=== PATIENT | female | born 1990 | race Caucasian/White ===

== ENCOUNTER 2017-07-28 15:37 | Outpatient (CLI) | END 2017-07-28 15:38 | disposition home or self-care (01) | LOC: LAB 15:37 | PROVIDERS: ATTEND Nurse Practitioner Family | DX: Z00.00 Encounter for general adult medical examination without abnormal findings (principal) | CPT/HCPCS: 36415; 80053; 80061; 84443; 85025 ==

== ENCOUNTER → 2017-07-30 | Outpatient (CLI) | LOC: LAB 16:42 | PROVIDERS: ATTEND Nurse Practitioner Family | DX: R31.9 Hematuria, unspecified (principal) ==

== ENCOUNTER 2017-08-10 13:00 | Outpatient (CLI) ==
--- NOTE | 2017-08-10 14:23 | MRI ---
EXAM: MRI brain without IV contrast. DATE: 08/10/2017. HISTORY: Headaches. TECHNIQUE: Sagittal T1W, axial T2W, axial FLAIR, axial T1W, axial DWI, and coronal T2W GRE sequences of the brain were obtained using 1.2 Lesley magnet. No IV contrast. COMPARISON: MRI brain 06/02/2016. FINDINGS: The ventricles, cisterns, and subarachnoid spaces are normal in size and configuration. N o midline shift, mass effect or abnormal extra-axial fluid collection is apparent. No acute infarct, hemorrhage or neoplasm is identified. The stevenson - white matter differentiation is normal. The 7th/8 th cranial nerve complexes, cerebellopontine angles, brainstem, and visible cervical spinal cord are normal. There is no cerebellar tonsillar ectopia. The pituitary gland anterior lobe remains promine nt with convex superior border similar to January 2016. Corpus callosum is normal in size and configura tion. Flow voids are present in the major intracranial arteries and in the dural venous sinuses. No aneurysm, AVM or dural venous sinus thrombosis is apparent. No orbit abnormality is identified. Th e mastoid air cells are unremarkable. Right maxillary sinus floor T2W bright, T1W dark, 16 x 12.5 x 11 mm focus is demonstrated. A separate T2W intermediate / bright, IR bright, T1W slightly bright fo cus (9 x 11.6 x 7.7 mm) is also evident at the right maxillary sinus floor. There is no acute sinusi tis. Minor/mild adenoid tissue prominence is revealed. No neck mass or lymphadenopathy is detected. No calvarial neoplasm or acute fracture is evident. IMPRESSIONS: 1. No acute infarct, hemorrhage, intra-axial neoplasm or hydrocephalus. 2. Anterior pituitary gland prominence/lesion is similar to the January 2016, which favors a benign pro cess. 3. Mild adenoid hypertrophy (likely benign). 4. Right maxillary sinus probable retention cysts (x2).
== END 2017-08-10 13:01 | disposition home or self-care (01) ==
LOC: RAD 13:00
PROVIDERS: ATTEND Nurse Practitioner Family
DX: R31.9 Hematuria, unspecified (principal); R51 Headache
CPT/HCPCS: 81001

== ENCOUNTER 2018-10-03 20:08 | Emergency (ER) ==
[2018-10-03 20:33] VITALS: BP 111/67; TEMP 98.5; BMI 20.8
[2018-10-03] MEDS ORDERED: SODIUM CHLORIDE 1,000 ML IV STA (20:45)
[2018-10-03] MEDS ORDERED: ZOFRAN 4 MG/2 ML IVP STA (20:45)
[2018-10-03] MEDS ORDERED: DILAUDID 1 MG/ML SYRINGE IVP STA (20:45)
--- NOTE | 2018-10-03 21:47 | CT ---
EXAM: CT scan of the head without contrast HISTORY: Headache TECHNIQUE: Helical imaging of the head was performed without contrast. 5 mm thin axial images and c oronal and sagittal images were provided for interpretation. Comparison MRI of the brain dated 08/10/2017. FINDINGS: The stevenson-white interface appears normal. No acute hemorrhages are seen. There is no mass effect. The basal cisterns are patent. The paranasal sinuses and mastoid air cells are clear. The calvarium and extracranial soft tissues are normal. IMPRESSION: No acute intracranial abnormalities are seen.
--- NOTE | 2018-10-03 21:56 | CT ---
EXAM: CT scan abdomen pelvis with contrast " HISTORY: Abdominal pain COMPARISON: CT scan abdomen pelvis 09/16/2016 FINDINGS: Contiguous axial images obtained from lung bases to the symphysis pubis following uneventf ul administration of intravenous contrast utilizing 3-mm collimation. Sagittal and coronal reconstru ctions were imaged and reviewed.. The visualized lung bases are clear. The gallbladder is fluid duyen led without cholelithiasis. The liver, pancreas, spleen and adrenal glands have normal enhanced CT a ppearance. The abdominal aorta is normal in course and caliber. The kidneys excrete contrast in a n ormal fashion bilaterally. There is an intrauterine device within the uterus. Prominent parametrial vessels are noted.. The appendix was not visualized. Fluid or inflammatory changes. There are prom inent air and fluid filled loops of small bowel which may be related to ileus versus gastroenteritis. . There is a limbus vertebrae at L2 . IMPRESSION: Prominent small bowel which may related to ileus versus gastroenteritis. Intrauterine device within the uterus. Nonvisualization of the appendix. Prominent parametrial vessels which may be related to pelvic congestion syndrome.
--- NOTE | 2018-10-03 22:03 | ED.PDOC ---
General ED Provider: Dr. JARVIS KASPER-ER Chief Complaint: Abdominal Pain Stated Complaint: fox been hurting for a long time Time Seen by Physician: 20:10 Mode of Arrival: Walk-In Information Source: Patient Exam Limitations: No limitations Primary Care Provider: CHUCK LIAO Nursing and Triage Documentation Reviewed and Agree: Yes Does patient meet sepsis criteria?: No System Inflammatory Response Syndrome: Not Applicable Sepsis Protocol: For patient's 13 years and over: Temp is 96.8 and below OR 101 and greater Pulse >90 BPM Resp >20/minute Acutely Altered Mental Status Are patient's symptoms suggestive of a new infection, such as: -Pneumonia -Skin, Soft Tissue -Endocarditis -UTI -Bone, Joint Infection -Implantable Device -Acute Abdominal Infection -Wound Infection -Meningitis -Blood Stream Catheter Infection -Unknown GI Complaint Exam - Abdominal Pain Complaint/Exam Onset: Gradual Duration: several weeks Symptoms Are: Still present Initial Severity: Mild Current Severity: Mild Location of Pain: Diffuse Character: Reports: Dull, Aching, Cramping Aggravating: Reports: Eating Alleviating: Reports: None Associated Signs and Symptoms: Reports: Nausea Abdominal Findings: Present: None Differential Diagnoses: Constipation Review of Systems - Review Of Systems Constitutional: Reports: No symptoms Eyes: Reports: No symptoms Ears, Nose, Mouth, Throat: Reports: No symptoms Respiratory: Reports: No symptoms Cardiac: Reports: No symptoms GI: Reports: Abdominal pain : Reports: No symptoms Musculoskeletal: Reports: No symptoms Skin: Reports: No symptoms Neurological: Reports: No symptoms Endocrine: Reports: No symptoms Hematologic/Lymphatic: Reports: No symptoms All Other Systems: Reviewed and Negative Past Medical History - Past Medical History Previously Healthy: Yes Endocrine: Reports: Unknown Cardiovascular: Reports: Unknown Respiratory: Reports: Unknown Hematological: Reports: Unknown Gastrointestinal: Reports: Unknown Genitourinary: Reports: Unknown Neuro/Psych: Reports: Unknown Musculoskeletal: Reports: Unknown Cancer: Reports: Unknown Last Menstrual Period: IRREGULAR PERIODS, HAS IUD - Surgical History General Surgical History: Reports: Unknown - Family History Family History: Reports: Unknown - Social History Smoking Status: Never smoker Hx Substance Use: No Alcohol Screening: None - Immunizations Tetanus Shot up to Date: Yes Physical Exam - Physical Exam Appearance: Well-appearing, No pain distress, Well-nourished Eyes: MIGUEL, EOMI, Conjunctiva clear ENT: Ears normal, Nose normal, Oropharynx normal Neck: Supple Respiratory: Airway patent, Breath sounds clear, Breath sounds equal, Respirations nonlabored Cardiovascular: RRR, Pulses normal, No rub, No murmur GI/: Soft, Nontender, No masses, Bowel sounds normal, No Organomegaly Musculoskeletal: Normal strength, ROM intact, No edema, No calf tenderness Skin: Warm, Dry, Normal color Neurological: Sensation intact, Motor intact, Reflexes intact, Cranial nerves intact, Alert, Oriented Psychiatric: Affect appropriate, Mood appropriate Interpretation - Radiology Interpretation Radiology Interpretation By: Radiologist Radiology Results: Negative Exam Interpreted: CT Scan Critical Care Note - Critical Care Note Total Time (mins): 0 Course - Course Hematology/Chemistry: 10/03/18 20:45 10/03/18 20:45 Orders, Labs, Meds: Lab Review 10/03/18 10/03/18 10/03/18 20:45 20:45 20:45 WBC 5.93 RBC 4.29 Hgb 13.2 Hct 40.2 MCV 93.7 MCH 30.8 MCHC 32.8 RDW Coeff of Ekaterina 12.4 Plt Count 179 Immature Gran % (Auto) 0.2 Neut % (Auto) 79.0 Lymph % (Auto) 10.1 [place] % (Auto) 7.6 Eos % (Auto) 2.9 Baso % (Auto) 0.2 Immature Gran # (Auto) 0.0 Neut # (Auto) 4.7 Lymph # (Auto) 0.6 [place] # (Auto) 0.5 Eos # (Auto) 0.2 Baso # (Auto) 0.0 ESR 12 Sodium 139.1 Potassium 3.61 Chloride 103.9 Carbon Dioxide 26.8 Anion Gap 12.01 BUN 10.8 Creatinine 0.72 Estimated GFR (MDRD) 96.00 BUN/Creatinine Ratio 15.00 Glucose 84.6 Calcium 8.58 Total Bilirubin 0.61 AST 43.9 H ALT 31.9 Alkaline Phosphatase 33.8 L Total Protein 7.32 Albumin 4.37 Globulin 2.95 Albumin/Globulin Ratio 1.48 Amylase 77.9 Lipase 98.0 Serum , Qual Negative Urine Color Urine Clarity Urine pH Ur Specific [place] Urine Protein Urine Glucose (UA) Urine Ketones Urine Blood Urine Nitrite Urine Bilirubin Urine Urobilinogen Ur Leukocyte Esterase 10/03/18 20:53 WBC RBC Hgb Hct MCV MCH MCHC RDW Coeff of Ekaterina Plt Count Immature Gran % (Auto) Neut % (Auto) Lymph % (Auto) [place] % (Auto) Eos % (Auto) Baso % (Auto) Immature Gran # (Auto) Neut # (Auto) Lymph # (Auto) [place] # (Auto) Eos # (Auto) Baso # (Auto) ESR Sodium Potassium Chloride Carbon Dioxide Anion Gap BUN Creatinine Estimated GFR (MDRD) BUN/Creatinine Ratio Glucose Calcium Total Bilirubin AST ALT Alkaline Phosphatase Total Protein Albumin Globulin Albumin/Globulin Ratio Amylase Lipase Serum , Qual Urine Color Yellow Urine Clarity Clear Urine pH 5.5 Ur Specific [place] 1.020 Urine Protein Negative Urine Glucose (UA) Negative Urine Ketones Trace Urine Blood Negative Urine Nitrite Negative Urine Bilirubin Negative Urine Urobilinogen 0.2 Ur Leukocyte Esterase Negative Orders Category Date Time Status NPO REMINDER: IMAGING ONCE CARE 10/03/18 20:46 Completed ED IV/MEDIPORT/POWERPORT .ONCE EMERGENCY 10/03/18 20:45 Active AMYLASE Stat LAB 10/03/18 20:45 Completed BLOOD CULTURE (ED ONLY) Stat LAB 10/03/18 20:45 Received CBC W/ AUTO DIFF Stat LAB 10/03/18 20:45 Completed COMPREHENSIVE METABOLIC PANEL Stat LAB 10/03/18 20:45 Completed ESR Stat LAB 10/03/18 20:45 Completed LIPASE Stat LAB 10/03/18 20:45 Completed SERUM Stat LAB 10/03/18 20:45 Completed URINALYSIS C & S IF INDICATED Stat LAB 10/03/18 20:53 Completed 0.9 % Sodium Chloride [Saline Flush] MEDS 10/03/18 20:45 Ordered 1 syr IVF PRN PRN Hydromorphone HCl [Dilaudid 1 mg/ml Syringe] MEDS 10/03/18 20:45 Discontinued 1 mg IVP ONCE STA Ondansetron HCl/Pf [Zofran 4 mg/2 ml] MEDS 10/03/18 20:45 Discontinued 4 mg IVP ONCE STA Sodium Chloride 0.9% [Sodium Chloride] 1,000 ml MEDS 10/03/18 20:[address] ABDOMEN/PELVIS W CONTRAST Stat RADS 10/03/18 20:[address] HEAD W/O CONTRAST Stat RADS 10/03/18 20:46 Completed Medications Generic Name Dose Route Start Last Admin Trade Name Freq PRN Reason Stop Dose Admin Sodium Chloride 1,000 mls @ 500 mls/hr 10/03/18 20:45 10/03/18 21:03 Sodium Chloride IV 10/03/18 22:44 500 mls/hr BOLUS STA Administration Sodium Chloride 1 syr 10/03/18 20:45 Saline Flush IVF PRN PRN To flush IV Discontinued Medications Generic Name Dose Route Start Last Admin Trade Name Aleksey PRN Reason Stop Dose Admin Hydromorphone HCl 1 mg 10/03/18 20:45 10/03/18 21:03 Dilaudid 1 Mg/Ml Syringe IVP 10/03/18 20:46 1 mg ONCE STA Administration Ondansetron HCl 4 mg 10/03/18 20:45 10/03/18 21:03 Zofran 4 Mg/2 Ml IVP 10/03/18 20:46 4 mg ONCE STA Administration Vital Signs: Temp Pulse Resp BP Pulse Ox 10/03/18 20:08 98.5 F 89 18 111/67 97 Departure - Departure Time of Disposition: 22:03 Disposition: HOME SELF-CARE Discharge Problem: Abdominal pain Instructions: Chronic Abdominal Pain (ED) Condition: Good Pt referred to PMD for follow-up: Yes IPMP verified?: No Additional Instructions: bentyl 10md qid prn pain--#30--talk to your pcp about gb studies Allergies/Adverse Reactions: Allergies azithromycin [From Zithromax] Allergy (Verified 10/03/18 20:33) venlafaxine HCl [From Effexor] Allergy (Verified 10/03/18 20:33) Itching Home Medications: Ambulatory Orders Levonorgestrel [Mirena] 1 each IY DIRECTED 05/03/18 Multivitamin 1 cap PO DAILY 10/03/18 Quetiapine Fumarate 50 mg PO DIRECTED 10/03/18 Sumatriptan Succinate [Imitrex] 100 mg PO DIRECTED PRN 10/03/18 Disposition Discussed With: Patient, Family
== END 2018-10-03 22:14 | disposition home or self-care (01) ==
LOC: ED 20:08
DX: R10.9 Unspecified abdominal pain (principal); R11.0 Nausea
CPT/HCPCS: 36415; 80053; 81001; 82150; 83690; 84703; 85025; 85651; 87040; 96360; 96375; 99283

== ENCOUNTER 2018-10-19 08:16 | Outpatient (CLI) ==
--- NOTE | 2018-10-19 12:57 | NM ---
EXAM: Hepatobiliary scan HISTORY: Abdominal pain after eating. Protein and bacteria in urine. COMPARISON: None of this type. PROCEDURE: The patient was injected with 4.8 mCi of 99mTc mebrofenin intravenously. Images of the ab domen were obtained at 5 min intervals for 30 minutes. Additional images were obtained at 45 minute s and 1 hour. The patient was then injected with 2 mcg of CCK by slow infusion while images of the ga llbladder were obtained to assess gallbladder contraction. FINDINGS: Sequential images demonstrate normal uptake of tracer into the liver. Activity is seen in the intrahepatic biliary ducts at about 10 minutes. The activity appears in the gallbladder at about 10 minutes. Subsequent images demonstrate increasing activity in the gallbladder. Activity first a ppears in the small bowel at 30 minutes. The gallbladder ejection fraction is 7% . IMPRESSION: 1.Normal hepatobiliary scan. 2.The gallbladder ejection fraction is 7% (very low).
== END 2018-10-19 08:17 | disposition home or self-care (01) ==
LOC: RAD 08:16
PROVIDERS: ATTEND Nurse Practitioner Family
DX: R10.13 Epigastric pain (principal)

== ENCOUNTER 2018-11-10 15:04 | Outpatient (CLI) | END 2018-11-10 15:05 | disposition home or self-care (01) | LOC: LAB 15:04 | PROVIDERS: ATTEND Nurse Practitioner Family | DX: R53.83 Other fatigue (principal) | CPT/HCPCS: 36415; 80053; 80061; 83036; 84443; 85025 ==

== ENCOUNTER 2019-02-21 12:51 | Observation (INO) ==
--- NOTE | 2019-02-21 13:22 | ED.PDOC ---
General ED Provider: Dr. CHERYL BLUM Chief Complaint: Breast Pain Stated Complaint: Redness, tenderness and warmth to Right Breast; started yesterday. Saw primary care and sent here. Time Seen by Physician: 13:12 Mode of Arrival: Walk-In Information Source: Patient Exam Limitations: No limitations Primary Care Provider: CHUCK LIAO Nursing and Triage Documentation Reviewed and Agree: Yes Does patient meet sepsis criteria?: No System Inflammatory Response Syndrome: Not Applicable Sepsis Protocol: For patient's 13 years and over: Temp is 96.8 and below OR 101 and greater Pulse >90 BPM Resp >20/minute Acutely Altered Mental Status Are patient's symptoms suggestive of a new infection, such as: -Pneumonia -Skin, Soft Tissue -Endocarditis -UTI -Bone, Joint Infection -Implantable Device -Acute Abdominal Infection -Wound Infection -Meningitis -Blood Stream Catheter Infection -Unknown Review of Systems - Review Of Systems Constitutional: Reports: Weakness Eyes: Reports: No symptoms Ears, Nose, Mouth, Throat: Reports: No symptoms Respiratory: Reports: No symptoms Cardiac: Reports: No symptoms All Other Systems: Reviewed and Negative Past Medical History - Past Medical History Previously Healthy: Yes Endocrine: Reports: Unknown Cardiovascular: Reports: Unknown Respiratory: Reports: Unknown Hematological: Reports: Unknown Gastrointestinal: Reports: Unknown Genitourinary: Reports: Unknown Neuro/Psych: Reports: Unknown Musculoskeletal: Reports: Unknown Cancer: Reports: Unknown Last Menstrual Period: 3 weeks ago - Surgical History General Surgical History: Reports: Unknown - Family History Family History: Reports: Unknown - Social History Smoking Status: Never smoker Hx Substance Use: No Alcohol Screening: None - Immunizations Tetanus Shot up to Date: Yes Physical Exam - Physical Exam Appearance: Ill-appearing Ill-appearing: Mild Pain Distress: Mild (Right breast) Respiratory: Airway patent, Breath sounds clear, Breath sounds equal, Respirations nonlabored Cardiovascular: RRR, Pulses normal GI/: Soft, Nontender Musculoskeletal: Normal strength, ROM intact, No edema Skin: Warm, Dry, Normal color (Except R breast marked erythema, warm to touch and very tender; neg axillary nodes) Neurological: Sensation intact, Alert, Oriented Psychiatric: Affect appropriate, Mood appropriate Physician Notification - Case Discussed Physician Notified: Dr Cervantes/Hospitalist Time of Notification: 15:10 (Agrees with OBS IV/Oral ABX) Critical Care Note - Critical Care Note Total Time (mins): 35 Comments: lab review, consideration of exposure/work site hx; prior surgery this month; discussion with patient and with hospitalist Course - Course Hematology/Chemistry: 02/21/19 13:37 02/21/19 13:37 Orders, Labs, Meds: Lab Review 02/21/19 02/21/19 02/21/19 13:37 13:37 13:37 WBC 18.59 H RBC 3.87 L Hgb 11.9 L Hct 35.3 L MCV 91.2 MCH 30.7 MCHC 33.7 RDW Coeff of Ekaterina 12.7 Plt Count 190 Immature Gran % (Auto) 0.4 Neut % (Auto) 90.2 Lymph % (Auto) 5.2 L [place] % (Auto) 3.7 Eos % (Auto) 0.3 Baso % (Auto) 0.2 Immature Gran # (Auto) 0.1 Neut # (Auto) 16.8 H Lymph # (Auto) 1.0 [place] # (Auto) 0.7 Eos # (Auto) 0.1 Baso # (Auto) 0.0 Sodium 136.8 Potassium 3.04 L Chloride 101.8 Carbon Dioxide 26.8 Anion Gap 11.24 BUN 11.7 Creatinine 0.71 Estimated GFR (MDRD) 97.00 BUN/Creatinine Ratio 16.47 Glucose 122.2 H Lactic Acid 0.78 Calcium 8.45 Total Bilirubin 0.73 AST 29.3 ALT 25.1 Alkaline Phosphatase 42.4 Total Protein 6.33 Albumin 3.72 Globulin 2.61 Albumin/Globulin Ratio 1.42 Orders Category Date Time Status ADMIT OBSERVATION [PLACE PATIENT OBSERVATION] .TO ADMISSION 02/21/19 15:20 Active MEDSURG (NON-MONITORED BED) INTAKE & OUTPUT Q8HR CARE 02/21/19 15:17 Active VITAL SIGNS Q4HR CARE 02/21/19 15:17 Active VITAL SIGNS Q8HR CARE 02/21/19 15:17 Active REGULAR DIET DIETARY 02/21/19 Dinner Ordered BLOOD CULTURE (ED ONLY) Stat LAB 02/21/19 14:00 Received CBC W/ AUTO DIFF DAILY@0600 LAB 02/22/19 06:00 Ordered CBC W/ AUTO DIFF DAILY@0600 LAB 02/23/19 06:00 Ordered CBC W/ AUTO DIFF Stat LAB 02/21/19 13:37 Completed COMPREHENSIVE METABOLIC PANEL DAILY@0600 LAB 02/22/19 06:00 Ordered COMPREHENSIVE METABOLIC PANEL DAILY@0600 LAB 02/23/19 06:00 Ordered COMPREHENSIVE METABOLIC PANEL Stat LAB 02/21/19 13:37 Completed LACTIC ACID Stat LAB 02/21/19 13:37 Completed Ceftriaxone/D5w 1 gm Premix [Rocephin 1 gm Premix] 1 gm MEDS 02/21/19 13:24 Discontinued Premix 50 ml D5w 1 bag IV ONCE Ceftriaxone/D5w 1 gm Premix [Rocephin 1 gm Premix] 50 MEDS 02/21/19 13:40 Discontinued ml IV .STK-MED Sodium Chloride 0.9% [Sodium Chloride] 1,000 ml MEDS 02/21/19 13:23 Discontinued IV BOLUS RESUSCITATION STATUS Routine OTHERS 02/21/19 15:17 Ordered Medications Generic Name Dose Route Start Last Admin Trade Name Freq PRN Reason Stop Dose Admin Clindamycin HCl 300 mg 02/21/19 17:00 Cleocin PO 02/24/19 16:59 QID NAYLA CEFTRIAXONE/D5W 1 GM PREMIX 1 50 mls @ 75 mls/hr 02/21/19 21:00 gm/ Dextrose IV 02/24/19 20:59 Q12HR NAYLA Discontinued Medications Generic Name Dose Route Start Last Admin Trade Name Freq PRN Reason Stop Dose Admin CEFTRIAXONE/D5W 1 GM PREMIX 1 50 mls @ 75 mls/hr 02/21/19 13:24 02/21/19 13: 51 gm/ Dextrose IV 02/21/19 14:03 75 mls/hr ONCE STA Administration Sodium Chloride 1,000 mls @ 1,000 mls/hr 02/21/19 13:23 02/21/19 13:50 Sodium Chloride IV 02/21/19 14:22 1,000 mls/hr BOLUS STA Administration Vital Signs: Temp Pulse Resp BP Pulse Ox 02/21/19 14:49 98 F 02/21/19 12:52 98.0 F 69 14 92/57 L 98 Departure - Departure Time of Disposition: 15:30 Disposition: PLACED OBSERVATION Discharge Problem: Cellulitis Condition: Stable Pt referred to PMD for follow-up: Yes (Follow up after discharge from hospital) IPMP verified?: No (n/a) Allergies/Adverse Reactions: Allergies azithromycin [From Zithromax] Allergy (Verified 02/21/19 13:09) venlafaxine HCl [From Effexor] Allergy (Verified 02/21/19 13:09) Itching Home Medications: Ambulatory Orders Levonorgestrel [Mirena] 1 each IY DIRECTED 05/03/18 Multivitamin 1 cap PO DAILY 10/03/18 Quetiapine Fumarate 50 mg PO DIRECTED 10/03/18 Sumatriptan Succinate [Imitrex] 100 mg PO DIRECTED PRN 10/03/18
[2019-02-21] MEDS ORDERED: SODIUM CHLORIDE 1,000 ML IV STA (13:23)
[2019-02-21] MEDS ORDERED: ROCEPHIN 1 GM/50 ML D5W 1 GM in PREMIX 50 ML D5W 1 BAG IV STA (13:24)
[2019-02-21] MEDS ORDERED: ROCEPHIN 1 GM/50 ML D5W 50 ML IV ONE (13:40)
[2019-02-21] MEDS: CLEOCIN PO SCH ×2 (16:14→20:51)
[2019-02-21 16:23] VITALS: BMI 21.4
--- NOTE | 2019-02-21 16:23 | PCM ---
- Chief Complaint Chief Complaint: Skin rash/breast pain - History of Present Illness History of Present Illness: 28 yo CF patient of Jessica AGUAYO presented to ED on 02/21/19 at 13:[address] Abad. She reported rash present 4-5 days with pain and worsening right breast pain. Worsening specifically over the last 48 hours erythema, tenderness right breast. 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 NO known insect bites, no known trauma/injury. LMP 3 weeks ago else no significant past medical history. No reported surgical history. Tetanus up to date. Labs showed wbc 18.59, hgb 11.9 plt 190. CMP 136.8, K+ 3.04 , cl 101.8, 11.7, glucose 122.2. Lactic acid was negative at 0.78. AST 29.3, ALT 25.1, albumin 3.72. Pt temp was 98, pulse 69, RR 14, BP 92/57, pulse ox 98 % on RA. WBC elevated was only finding and negative remainder of SIRS w/u. Nursing notes reviewed swelling, redness and pain to the right breast, nausea, weakness, right breast warm to touch. Meets characteristics of cellulitis with rubor/calor/dolor. NO localized drainable abscess. Patient seen in room 118 with MS Ajay Elmore present. She noted no known injury/cause. Awoke with sx. Has used ice packs, tylenol and motrin. MGM/PGM ages of 60's with breast cancer. NO first degree relative. No mother/sister/children with BrCA. , no tobacco, no ETOH, no drug use. She has 2 kids 8 and 9. She had period 3 weeks ago, normal for her. She did get 1 gram of rocpehin in the ER. Home meds reviewed zoloft/seroquel, intermittent hydroxyzine and sumatriptan. She had her GB removed early 01/2019. She has no other /co at this time. [id number] erythema, essentially entirety of breast. She has scabbed/abraded regions along the 10 o clock and 2 oclock positions that may be a ?bite. I asked about human bite and she noted it was not that. I asked about wasp/bee sting, she noted it was not that. It could have been a fingernail scratch, she noted it may have been from a mosquito bite. Shenoted tetanus updated within last 2-3 years. She is well within the 5 year window. NO acute/open wounds. Scabbed wounds along upper breast. Non breast feeding female. - Review of Systems Constitutional: weakness, fatigue, loss of appetite. No: fever, chills, sweats Eyes: other (glasses). No: blurred vision, double-vision, discharge, itching, pain, redness, photophobia Ears: No: pain, bleeding, drainage, ringing, hearing loss, other Nose: No: bleeding, congestion, discharge, other Throat: No: pain, swelling, voice change, other Mouth: No: bleeding, pain, swelling, other Respiratory: No: cough, shortness of air, wheeze, hemoptysis, pain with breathing, other Cardiovascular: other (Breast Pain right breast.). No: chest pain, left arm pain, diaphoresis, PND, orthopnea, edema, palpitations, syncope Gastrointestinal: nausea Genitourinary: No: dysuria, hematuria, frequency, incontinence, flank pain, vaginal discharge, abnormal bleeding, pelvic pain, other Last Menstrual Cycle: 3 weeks ago Neurological: dizziness, weakness. No: headache, seizure, numbness, speech difficulty, problems with walking, tremor, fainting Musculoskeletal: No: pain, swelling in joints Skin: rash, wounds Immunology: No: hives, itching, frequent infections, difficulty healing, other Hematology: No: easy bruising, easy bleeding, swollen glands, other Endocrine: No: weight changes, cold intolerance, heat intolerance, excessive thirst, excessive hunger, polyuria, other Psychiatric: depression, other (schizophrenia listed.) Habits: No: tobacco use, substance use, alcohol use - Past Medical History Past Medical History: Nephrolithiaiss, depression, anxiety, migraine, bipolar, Schizophrenia. Pituitary brain tumor, - Past Surgical History Past Surgical History: Hernia repair, GB removed 3 weeks ago. - Allergies Allergies/Adverse Reactions: Allergies Allergy/AdvReac Type Severity Reaction Status Date / Time azithromycin [From Zithromax] Allergy Verified 02/21/19 13:09 venlafaxine HCl Allergy Itching Verified 02/21/19 13:09 [From Effexor] - Medications Medications: Medications Generic Name Dose Route Start Last Admin Trade Name Freq PRN Reason Stop Dose Admin Clindamycin HCl 300 mg 02/21/19 17:00 Cleocin PO 02/24/19 16:59 QID NAYLA CEFTRIAXONE/D5W 1 GM PREMIX 1 50 mls @ 75 mls/hr 02/21/19 21:00 gm/ Dextrose IV 02/24/19 20:59 Q12HR NAYLA - Family History Past Family History: MGM/PGM BRCa but in 60's. Family history of cardiac disorders in father and mother. Family history of diabetes. - Body Composition Height: 5 ft 3 in Weight: 121 lb Body Mass Index (BMI): 21.4 - Physical Examination HEENT: Vital Signs - 24 hr 02/21/19 02/21/19 02/21/19 12:52 14:49 15:59 Temperature 98.0 F 98 F 98.9 F Pulse Rate 69 60 Respiratory 14 16 Rate Blood Pressure 92/57 L O2 Sat by Pulse 98 100 Oximetry Constitutional: Appearance-No acute distress, Consistent with stated age. Orientation- Oriented x 3, alertGait-Normal pace, normal arm movement. Build and Nutrition-[normal BMI 21] General- Patient is pleasant and cooperative with the interview and exam. Integumentary: General-rashes, 15cm x 15cm right breast nearly entirety of the right breast. Enlarged compared to left. Full breast exam completed and no obvious nodules. Serpiginous borders, markedly hot to touch, painful to touch. E/o Cellulitis/erysipelase. She has a small shellie/scab/abrasion at the 10 o' clock position that has a possible healing scratch. Another spot around the 2 oclock position just outside of the areola. No fluctuance, no tissue to I+D. Peau d' orange changes appear present in right breast. Palpation- Normal skin moisture/turgor. Skin is warm to touch, appropriate. Capillary refill is normal bilateral Upper and lower extremity. Head/Neck: Head- normocephalic and atraumatic. Neck- without visible/palpable lumps or pulsations. Palpation- No bony tenderness about head/neck along frontal, occipital, temporal, parietal, mastoid, jawline, zygoma, orbit or any other location. NO temporal artery tenderness. No TMJ tenderness. Neck Supple. Thyroid-No thyromegaly, no nodules Eye: Bilaterally PERRLA, EOMI. No discharge. Upper and lower eyelids are normal. Sclera/conjunctiva normal without discharge. Cornea is normal and clear. Lens is normal. Eyeball appears normal. No ciliary flushing, no conjunctival injection. +Glasses. ENMT: Pinna- normal without tenderness or erythema. External auditory canal Left- normal without erythema or discharge, no excessive cerumen. External auditory canal Right-normal without erythema or discharge, no excessive cerumen. TM left- Rosen/pearly, normal light reflex and anatomy TM Right- Rosen/ pearly, normal light reflex and anatomy Hearing Assessment-normal to conversational speech. Nose and sinus- No sinus tenderness along frontal/ maxillary region. External appearance normal and midline. Nares- bilateral quiet airflow, no discharge. Nasal mucosa- No bleeding noted and no ulcerations observed. [place], moist. Turbinates non boggy. Lips- normal color, moist without cracks/lesions Oral Cavity/Palate- hard/soft palate intact without lesions, oral mucosa pink and moist. Tongue normal midline. Oropharynx- no pharyngeal erythema, Uvula midline. No post nasal drip. No exudate. Salivary glands- Non tender to palpation CHEST/LUNG: Inspection- symmetric chest wall no pectus deformity. Normal effort , no distress, no use of accessory muscles. Breasts as above in skin. Palpation - nontender sternum, ribline. No abnormal pulsations. Auscultation- Breath sounds normal throughout all lung staley. Normal tracheal sounds, Normal bronchial sounds overlying sternum, Bronchovessicular sounds normal between scapulae posteriorly, Normal vessicular breath sounds heard throughout periphery. Lungs are clear today. Adventitious sounds- No wheezes, rales, rhonchi. CARDIOVASCULAR: Carotid artery- normal, no bruits or abnormal pulsations. Jugular vein- no pulsations. Palpation/Percussion- Normal PMI, no palpable thrill Auscultation- Regular rate and rhythm. No murmur noted in sitting, supine positions. Extremities- no digital clubbing, cyanosis, edema, increased warmth. ABDOMEN: Inspection- normal and no visible pulsations. Normal contour. Auscultation- Bowel sounds normal, no abdominal bruits. Palpation/Percussion- soft, non-tender, no rebound tenderness, no rigidity (guarding), no jar tenderness, no masses. Liver-no hepatomegaly, Spleen no splenomegaly, Hernias - none. Rectal not examined. Peripheral Vascular: Upper extremity Left- Normal temperature with pink nailbeds and no ulcerations. Upper extremity Right- Normal temperature with pink nailbeds and no ulcerations. Lower extremity- Normal temperature with pink nailbeds and no ulcerations. DP pulses 2+ bilaterally. Pedal hair intact. Normal capillary refill. Edema- No edema. Varicose veins bilateral LE. Musculoskeletal: Generalized-No generalized swelling or edema of extremities, no digital clubbing or cyanosis, neurovascularly intact all four extremities. Upper extremity- Symmetrical posture. No visible deformity. Normal sensation along medial and lateral upper extremity proximally and distally. NO tenderness overlying shoulder, lateral/medial epicondyle. I&C Tech 5/5 and strength 5/5 bilateral UE. Elbow palpated, no tenderness overlying olecranon. Normal supination, pronation to active/passive ROM and to resisted rotation. Bicep insertion/tricep insertion appear normal without obvious pathology. Rotator cuff evaluated and intact. Normal wrist ROM bilaterally. Normal hand movement, intrinsic muscles of hands normal. No tenderness to palpation of hands/wrists/ elbows. Lower extremity- Hip: Not tender to palpation, no pain, no swelling, edema or erythema of surrounding tissue, normal strength and tone. Normal appearing hip ROM bilaterally without pain. Knee: Knee ROM normal. No tenderness overlying trochanters, no tenderness about patella, quad tendon, patellar tendon. No tenderness at tibial tuberosity. Ankle: normal ROM not tender to palpation along medial/lateral malleolus. Foot: Normal movement of toes, no tenderness bilateral feet/toes. Normal foot type. Spine/Ribs- No deformities, masses or tenderness, no known fractures, normal strength, Normal ROM. Normal stability No tenderness along C/T/L spine. Normal appearing ROM about spine. Neurological: General- Moves all 4 extremities symmetrically. Symmetrical face and body posture. Cranial nerves- individually evaluated II-XII and intact. PERRLA, Normal EOMI, visual/special senses appear intact, Face is symmetrical and normal sensation/movement, normal tongue, normal strength/posture of neck musculature. Reflexes- intact with DTR 2+ patellar, Achilles, bicep, brachial, tricep. Ankle clonus normal with 2 beats. Strength- 5/5 bilateral UE and LE. Soft touch- intact bilateral UE and LE. Temperature sensation- intact bilateral UE and LE. Neuropsych: Oriented- Person, place, time. (AAOx3), Mood/affect- Flat. Speech- Normal speech, normal rate, normal tone, normal use of language, volume and coherence. Thought content- normal with ability to perform basic computations and apply abstract thought/reason. Associations- intact, no SI/HI, no hallucinations, delusions, obsessions. Judgment/insight- Appropriate. Memory- Recall intact, remote and recent memory intact. Knowledge- Age appropriate fund of knowledge, concentration and attention span normal. Lymphatic: Head/Neck- normal size and non tender to palpation. Axillary- normal size and non tender to palpation. Femoral and Inguinal- normal size and non tender to palpation. - Lab/Tests/Diagnostic Imaging Lab/Tests/Diagnostic Imaging: Laboratory Last Values WBC 18.59 K/ul (4.6-10.2) H 02/21/19 13:37 RBC 3.87 10^6/ul (4.20-5.40) L 02/21/19 13:37 Hgb 11.9 g/dl (12.0-16.0) L 02/21/19 13:37 Hct 35.3 % (37.0-47.0) L 02/21/19 13:37 MCV 91.2 fl (81.0-99.0) 02/21/19 13:37 MCH 30.7 pg (27.0-31.0) 02/21/19 13:37 MCHC 33.7 (31.8-35.4) 02/21/19 13:37 RDW Coeff of Ekaterina 12.7 % (11.6-14.8) 02/21/19 13:37 Plt Count 190 10^3/uL (140-440) 02/21/19 13:37 Immature Gran % (Auto) 0.4 % (0.0-5.0) 02/21/19 13:37 Neut % (Auto) 90.2 02/21/19 13:37 Lymph % (Auto) 5.2 (10.0-50.0) L 02/21/19 13:37 [place] % (Auto) 3.7 (0-10) 02/21/19 13:37 Eos % (Auto) 0.3 % (0.0-7.0) 02/21/19 13:37 Baso % (Auto) 0.2 % (0.0-3.0) 02/21/19 13:37 Immature Gran # (Auto) 0.1 (0.0-1.0) 02/21/19 13:37 Neut # (Auto) 16.8 K/ul (2.0-6.9) H 02/21/19 13:37 Lymph # (Auto) 1.0 K/uL (0.60-3.4) 02/21/19 13:37 [place] # (Auto) 0.7 K/uL (0.4-2.0) 02/21/19 13:37 Eos # (Auto) 0.1 K/ul (0.0-0.7) 02/21/19 13:37 Baso # (Auto) 0.0 K/uL (0-0.2) 02/21/19 13:37 Sodium 136.8 mmol/L (134.5-145) 02/21/19 13:37 Potassium 3.04 mmol/L (3.5-5.1) L 02/21/19 13:37 Chloride 101.8 mmol/L (98-107) 02/21/19 13:37 Carbon Dioxide 26.8 mmol/L (22-30.0) 02/21/19 13:37 Anion Gap 11.24 02/21/19 13:37 BUN 11.7 mg/dL (7-17) 02/21/19 13:37 Creatinine 0.71 mg/dL (0.60-1.30) 02/21/19 13:37 Estimated GFR (MDRD) 97.00 mL/min 02/21/19 13:37 BUN/Creatinine Ratio 16.47 02/21/19 13:37 Glucose 122.2 mg/dL (74-106) H 02/21/19 13:37 Lactic Acid 0.78 mmol/L (0.7-2.1) 02/21/19 13:37 Calcium 8.45 mg/dL (8.4-10.2) 02/21/19 13:37 Total Bilirubin 0.73 mg/dL (0.2-1.3) 02/21/19 13:37 AST 29.3 U/L (14-36) 02/21/19 13:37 ALT 25.1 U/L (0-35) 02/21/19 13:37 Alkaline Phosphatase 42.4 U/L (38-126) 02/21/19 13:37 Total Protein 6.33 g/dL (6.3-8.2) 02/21/19 13:37 Albumin 3.72 g/dL (3.5-5.0) 02/21/19 13:37 Globulin 2.61 02/21/19 13:37 Albumin/Globulin Ratio 1.42 02/21/19 13:37 - Assessment (1) Cellulitis Status: Acute Code(s): L03.90 - CELLULITIS, UNSPECIFIED SNOMED Code(s): 043917997 (2) Hypokalemia Status: Acute Code(s): E87.6 - HYPOKALEMIA SNOMED Code(s): 20696584 (3) Normocytic anemia Status: Acute Code(s): D64.9 - ANEMIA, UNSPECIFIED SNOMED Code(s): 509511806 (4) Schizophrenia Status: Acute Code(s): F20.9 - SCHIZOPHRENIA, UNSPECIFIED SNOMED Code(s): 50035097 - Plan Plan: Erysipelas/Cellulitis: Patient presented with cellulitis vs insect sting vs human bite with [id number] erythema, edema, warmth. She has no hemorrhage, no bullae, no fever. This is unilateral, may involve the upper dermis and possibly lymphatics. With her AGUSTIN, weakness, fatigue and sudden onset onset, erysipelas is more likely than cellulitis. NO purulent drainage/abscess. There is a clear demarcation between tissues, specifically breast vs chest wall and this added additional strength to dx of erysipelas. She has some dimpling of the right breast suggesting edema of the hair follicles. Peau d'orange appearance is present. She had rapid progression of erythema over 48 hour period, was never tried on oral therapy so she will be put in for observation due to pain response. No fever, no chills, no tachycardia. I will cover for beta hemolytic strep and I also consiered possibility of human bite. I may change abx to augmentin, if no improvement in 24-48 hours. I will likely stop the rocephin and use 7 days of clinda/augmentin to cover for erysipelas and human bite. There is currently nothing to culture. Inflammatory breast cancer was considered and will continue to be on ddx. Since almost all women have LN involvement, this is less likely. - Admit observation - Clindamycin 300 QID PO - Rocephin 1 gram IV Daily. - CBC in am - CMP in am - Consider Mammo and US if not improving in 24-48 hours. - Morphine 2mg q 4 hours for pain. - Resume home psych meds. Leukocytosis: CBC repeat in am tomorrow Hypokalemia: 20meq K+Cl- twice daily. - CMP in am. - MG++ in am. Normocytic anemia: Monitor for now. -CBC in am. Diet: Regular diet DVT Prophy: Lovenox 40mg subcutaneous daily. Disposition: >50minute spent on admission today. Reviewed ER note, 1:[address] Abad. Discussed case with nursing, reviewed labs. No imaging done. Skin pen marking of breast per nursing. Entirety of my history and exam completed with MS 4 Emilee Elmore present. Patient daughter present as well. Will see patient again in am.
[2019-02-21] MEDS ORDERED: MORPHINE 2 MG/ML SYRINGE IVP PRN (16:50)
[2019-02-21] MEDS ORDERED: NON-FORMULARY MEDICATION (Sumatriptan Succinate [Imitrex] 100 MG) PO PRN (16:52)
[2019-02-21] MEDS ORDERED: QUETIAPINE FUMARATE 50 MG PO SCH (17:00)
[2019-02-21] MEDS ORDERED: LEVONORGESTREL IY SCH (17:00)
[2019-02-21] MEDS ORDERED: LOVENOX ONE (17:23)
[2019-02-21] MEDS: K-DUR PO SCH (17:26)
[2019-02-21] MEDS: LOVENOX SUBCUT SCH (17:26)
[2019-02-21] MEDS ORDERED: ZOFRAN TAB PO PRN (19:58)
[2019-02-21] MEDS ORDERED: ROCEPHIN 1 GM/50 ML D5W 1 GM in PREMIX 50 ML D5W 1 BAG IV SCH (21:00)
[2019-02-22] MEDS ORDERED: IMITREX PO PRN (07:02)
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
[2019-02-22] MEDS: CLEOCIN PO SCH ×4 (08:41→20:21)
[2019-02-22] MEDS: K-DUR PO SCH ×2 (08:41→17:07)
[2019-02-22] MEDS: AUGMENTIN 875-125 MG TAB PO SCH ×2 (08:41→20:20)
[2019-02-22] MEDS: ZOLOFT PO SCH (08:41)
[2019-02-22] MEDS ORDERED: SERTRALINE HCL 50 MG PO SCH (09:00)
[2019-02-22] MEDS: LOVENOX SUBCUT SCH (17:08)
[2019-02-22] MEDS ORDERED: SEROQUEL PO SCH (21:00)
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
[2019-02-23] MEDS: CLEOCIN PO SCH (08:41)
[2019-02-23] MEDS: K-DUR PO SCH (08:41)
[2019-02-23] MEDS: AUGMENTIN 875-125 MG TAB PO SCH (08:42)
[2019-02-23] MEDS: ZOLOFT PO SCH (08:42)
[2019-02-23 10:03] VITALS: BP 89/54; TEMP 97.9
--- NOTE | 2019-02-23 11:31 | US ---
EXAM: Diagnostic right breast ultrasound HISTORY: Inflammatory changes of the breast which is red and painful diffusely. COMPARISON: None FINDINGS: Ultrasound of the right breast demonstrates scattered subcutaneous edema with no focal mass or abnormality. There is no focal fluid collection. IMPRESSION: Findings are most consistent with cellulitis with no abscess. Follow-up as clinically i ndicated. If there is no resolution of symptoms, follow-up ultrasound may be obtained. BI-RADS 2: Benign findings:
--- NOTE | 2019-02-23 13:14 | PCM.DC ---
Final Diagnosis: Erysipelas/Cellulitis of Right Breast Leukocytosis Normocytic anemia Hypokalemia (1) Cellulitis Status: Inactive Code(s): L03.90 - CELLULITIS, UNSPECIFIED SNOMED Code(s): 583974194 (2) Hypokalemia Status: Resolved Code(s): E87.6 - HYPOKALEMIA SNOMED Code(s): 63205173 (3) Normocytic anemia Status: Resolved Code(s): D64.9 - ANEMIA, UNSPECIFIED SNOMED Code(s): 363043152 (4) Schizophrenia Status: Chronic Code(s): F20.9 - SCHIZOPHRENIA, UNSPECIFIED SNOMED Code(s): 43507626 Reason for Hospitalization: Erysipelas/cellulitis of right breast: Improving Leukocytosis: Resolved. Hypokalemia: Resolved. Normocytic Anemia: Resolved Schizophrenia: Chronic/stable Prognosis at Discharge: Improving breast pain/erythema. Condition at Discharge: Stable/Improved. Medications at Discharge: Ambulatory Orders Medication Instructions Recorded Levonorgestrel [Mirena] 1 each IY DIRECTED 05/03/18 Multivitamin 1 cap PO DAILY 10/03/18 Quetiapine Fumarate 50 mg PO DIRECTED 10/03/18 Sumatriptan Succinate [Imitrex] 100 mg PO DIRECTED PRN 10/03/18 Amoxicillin/Potassium Clav 1 tab PO Q12HR 6 Days #13 tablet 02/23/19 [Augmentin 875-125 mg Tab] Clindamycin HCl [Cleocin] 300 mg PO QID 6 Days #20 cap 02/23/19 Ondansetron HCl [Zofran Tab] 4 mg PO Q8H PRN 3 Days #12 tablet 02/23/19 Potassium Chloride [K-Dur] 20 meq PO BIDWM 7 Days #14 tab 02/23/19 Lab/Diagnostics: Laboratory Last Values WBC 6.22 K/ul (4.6-10.2) D 02/23/19 04:35 RBC 3.98 10^6/ul (4.20-5.40) L 02/23/19 04:35 Hgb 12.0 g/dl (12.0-16.0) 02/23/19 04:35 Hct 36.9 % (37.0-47.0) L 02/23/19 04:35 MCV 92.7 fl (81.0-99.0) 02/23/19 04:35 MCH 30.2 pg (27.0-31.0) 02/23/19 04:35 MCHC 32.5 (31.8-35.4) 02/23/19 04:35 RDW Coeff of Ekaterina 12.9 % (11.6-14.8) 02/23/19 04:35 Plt Count 213 10^3/uL (140-440) 02/23/19 04:35 Immature Gran % (Auto) 0.2 % (0.0-5.0) 02/23/19 04:35 Neut % (Auto) 57.3 02/23/19 04:35 Lymph % (Auto) 24.4 (10.0-50.0) 02/23/19 04:35 [place] % (Auto) 11.7 (0-10) H 02/23/19 04:35 Eos % (Auto) 6.1 % (0.0-7.0) 02/23/19 04:35 Baso % (Auto) 0.3 % (0.0-3.0) 02/23/19 04:35 Immature Gran # (Auto) 0.0 (0.0-1.0) 02/23/19 04:35 Neut # (Auto) 3.6 K/ul (2.0-6.9) 02/23/19 04:35 Lymph # (Auto) 1.5 K/uL (0.60-3.4) 02/23/19 04:35 [place] # (Auto) 0.7 K/uL (0.4-2.0) 02/23/19 04:35 Eos # (Auto) 0.4 K/ul (0.0-0.7) 02/23/19 04:35 Baso # (Auto) 0.0 K/uL (0-0.2) 02/23/19 04:35 Sodium 141.4 mmol/L (134.5-145) 02/23/19 04:35 Potassium 4.20 mmol/L (3.5-5.1) 02/23/19 04:35 Chloride 107.1 mmol/L (98-107) H 02/23/19 04:35 Carbon Dioxide 27.0 mmol/L (22-30.0) 02/23/19 04:35 Anion Gap 11.50 02/23/19 04:35 BUN 9.9 mg/dL (7-17) 02/23/19 04:35 Creatinine 0.67 mg/dL (0.60-1.30) 02/23/19 04:35 Estimated GFR (MDRD) 104.00 mL/min 02/23/19 04:35 BUN/Creatinine Ratio 14.77 02/23/19 04:35 Glucose 90.9 mg/dL (74-106) 02/23/19 04:35 Lactic Acid 0.78 mmol/L (0.7-2.1) 02/21/19 13:37 Calcium 8.56 mg/dL (8.4-10.2) 02/23/19 04:35 Total Bilirubin 0.41 mg/dL (0.2-1.3) 02/23/19 04:35 AST 19.4 U/L (14-36) 02/23/19 04:35 ALT 20.8 U/L (0-35) 02/23/19 04:35 Alkaline Phosphatase 47.6 U/L (38-126) 02/23/19 04:35 Total Protein 6.15 g/dL (6.3-8.2) L 02/23/19 04:35 Albumin 3.31 g/dL (3.5-5.0) L 02/23/19 04:35 Globulin 2.84 02/23/19 04:35 Albumin/Globulin Ratio 1.16 02/23/19 04:35 Na/K Trends 02/21/19 02/22/19 02/23/19 Range/Units 13:37 04:40 04:35 Sodium 136.8 137.4 141.4 (134.5-145) mmol/L Potassium 3.04 L 3.70 4.20 (3.5-5.1) mmol/L H/H Trends 02/21/19 02/22/19 02/23/19 Range/Units 13:37 04:40 04:35 Hgb 11.9 L 11.1 L 12.0 (12.0-16.0) g/dl Hct 35.3 L 33.5 L 36.9 L (37.0-47.0) % US of right breast: Cellulitis Education Provided to Patient and Family: 1. Augmentin R/B/A + Clindamycin R/B/A - Cdiff - Vaginial Candidiasis - Diarrhea - Allergic Reaction 2. Cellulitis care 3. Hypokalemia 4. Anemia 5. Leukocytosis. Follow-ups: PCP Jessica Carreon in 7-14 days. Disposition: HOME SELF-CARE Hospital Course: 28 yo CF patient of Jessica AGUAYO presented to ED on 02/21/19 at 13:[address] Abad. She reported Right breast rash present 4-5 days with pain and worsening right breast pain. Worsening specifically over the last 48 hours erythema, tenderness and swelling of the right breast. She works in [employer] for hospital/intermediate, unknown exposure. NO known insect bites, no known trauma/injury, we discussed human bite and she did not remember. LMP 3 weeks ago else no significant past medical history. No reported surgical history. Tetanus up to date. Labs showed wbc 18.59, hgb 11.9 plt 190. CMP 136.8, K+ 3.04 , cl 101.8, 11.7, glucose 122.2. Lactic acid was negative at 0.78. AST 29.3, ALT 25.1, albumin 3.72. Pt temp was 98, pulse 69, RR 14, BP 92/57, pulse ox 98 % on RA. WBC elevated was only finding and negative remainder of SIRS w/u. Nursing notes reviewed swelling, redness and pain to the right breast, nausea, weakness, right breast warm to touch. Meets characteristics of cellulitis with rubor/calor/dolor. NO localized drainable abscess. Patient seen in room 118 with MS Ajay Elmore present. She noted no known injury/cause. Awoke with sx. Has used ice packs, tylenol and motrin. MGM/PGM ages of 60's with breast cancer. NO first degree relative. No mother/sister/children with BrCA. , no tobacco, no ETOH, no drug use. She has 2 kids 8 and 9. She had period 3 weeks ago, normal for her. She did get 1 gram of rocpehin in the ER. Home meds reviewed zoloft/seroquel, intermittent hydroxyzine and sumatriptan. She had her GB removed early 01/2019. She has no other /co at this time. [id number] erythema, essentially entirety of breast. She has scabbed/abraded regions along the 10 o clock and 2 oclock positions that may be a ?bite. I asked about human bite and she noted it was not that. I asked about wasp/bee sting, she noted it was not that. It could have been a fingernail scratch, she noted it may have been from a mosquito bite. Shenoted tetanus updated within last 2-3 years. She is well within the 5 year window. NO acute/open wounds. Scabbed wounds along upper breast. Non breast feeding female. She was started on clindamycin PO 300mg QID and rocephin 1 gram BID. HD #2 02/22/19: Erythema was less intense, heat was less intense. She had [id number] erythema to the right breast. Slept soundly, did not arouse to name, did arouse to light tapping on the left hip. Nurse Anna present during history/exam. She noted pain in breast 01/03. Using cool compresses. Right breast remained erythematous mostly around the areola. Still had 4 areas of small abrasion/scab. I again asked about human bite and she said no. I changed the abx today to clinda/augmentin and we kept another 24 hours to monitor. Labs showed wbc drop from 18.59 to 12.64 and hgb 11.9 to 11.1. Plt stable at 191. Her CMP this am showed normal sodium 137.4, potassium is markedly better at 3.70, BUN 9.3 and cr 0.69. Glucose stable 92.9. Calcium looked low at 8.22 but corrected to 8.8 and ws normal. Good uout 1.8ml/kg/hr. Afebrile throughout stay 98.4-99.3. Pulse 60-69. BP 92/57, 102/59, 100/61, 90/58, 97/5. O2 100% RA. Reviewed obs narratives. Cool compresses utilized. Morphine utilized. Zofran utilized. 22:00 pain decreased. 0200 erythema decreasing 0300 slept well up until 7:00 with rounding and she had no further c/o pain. This am pain is present again. She asked about US. I noted I would like mammo and US once the pain has improved a little, she agreed. No other c/o at this time. NO URI, no GI/, no diarrhea, no abdominal pain. Breast pain persists. Reviewed labs with her, obs narratives as well. She is not on telemetry. HD #3 02/23/19: Clindamycin day 3, Augmentin day 2. Pain is markedly better. BP continued to run low normal for her 86-97/51-61. Afebrile, HR 57-73. O2 97-100 %. BM x1, voids x 2. 1000+output last 8 hours. Erythema is less intense, heat is less intense, swelling is getting better. Sayra present for history/ exam. She has no more peau d' orange texture. She has obvious healing lesions x 3 along the upper border of the areola and medial border. She had essentially no erythema this am, just edema. This am she was sleeping soundly, easily awoken to knock into room/name, fish stringer assembler applied, gloves applied and history completed. She noted pain in right breast 2-3/10. Using cool compress infreq now, declined them most of the night. 3 areas of small abrasion/scab. It appears that the change of abx to clinda/augmentin was a good choice. We will get US today. Mammo will need to be outpatient. Talked with Jessica Carreon PCP today. She has reached maximal benefit from hospital stay. Improving on oral abx. Plan to d/c home today, now that the pain/erythema continue to resolve. Still w/o diarrhea. R/B/A to c. diff d/w her again. Vaginal yeast infection discussed no symptoms. Labs this am showed wbc drop from 12.64 to 6.22 and normal. hgb 11.1 yesterday improved to 12.0 today. Plt up to 213 from 191. Her CMP this am showed normal sodium, normal K+, normal glucose, normal calcium. Afebrile throughout entirety of stay. IF worsening instructed to f/u with ER. Day of D/C Physical exam: Vital Signs - 24 hr 02/22/19 02/22/19 02/22/19 09:42 14:00 18:00 Temperature 98.1 F 98.4 F 98.4 F Pulse Rate 59 L 73 60 Respiratory 16 14 20 Rate Blood Pressure 95/61 89/51 L 94/61 O2 Sat by Pulse 97 98 100 Oximetry 02/22/19 02/23/19 21:13 05:15 Temperature 98.4 F 97.6 F Pulse Rate 57 L 61 Respiratory 18 18 Rate Blood Pressure 95/57 L 86/53 L O2 Sat by Pulse 98 98 Oximetry Constitutional: Appearance-No acute distress, Consistent with stated age. Asleep on entry, aroused by tapping hip. Orientation- Oriented x 3, alert Build and Nutrition-[normal BMI 21] General- Patient is pleasant and cooperative with the interview and exam. Easily awoken to name this am. Integumentary: General-rashes, erythema is gone. Peau d' orange better/less evident. She has healing nicks/abrasions x 3. Less noticeable size difference R >L. Sayra in room, gloved exam. Erythema resolved. Edema present but improving. Markedly less hot to touch, did not report pain/tenderness to touch today. Appears celllitis/erysipelas is improving. She has a small shellie/scab/ abrasion at the 10 o'clock position that has a possible healing scratch/bite/ sting. ?fingernail, ?tooth, ? insect sting. Another spot around the 2 oclock position just outside of the areola. No fluctuance, no tissue to I+D. Palpation- Normal skin moisture/turgor. Skin is warm to touch, appropriate. Capillary refill is normal bilateral Upper and lower extremity. ENMT: Hearing Assessment-normal to conversational speech. Nose and sinus- No sinus tenderness along frontal/maxillary region. External appearance normal and midline. Nares- bilateral quiet airflow, no discharge. Nasal mucosa- No bleeding noted and no ulcerations observed. [place], moist. Turbinates non boggy. Lips- normal color, moist without cracks/lesions Oral Cavity/Palate- hard/soft palate intact without lesions, oral mucosa pink and moist. Tongue normal midline. Oropharynx- no pharyngeal erythema, Uvula midline. No post nasal drip. No exudate. Salivary glands- Non tender to palpation CHEST/LUNG: Inspection- symmetric chest wall no pectus deformity. Normal effort , no distress, no use of accessory muscles. Breasts as above in skin. Auscultation- Breath sounds normal throughout all lung staley. Normal tracheal sounds, Normal bronchial sounds overlying sternum, Bronchovessicular sounds normal between scapulae posteriorly, Normal vessicular breath sounds heard throughout periphery. Lungs are clear today. Adventitious sounds- No wheezes, rales, rhonchi. CARDIOVASCULAR: Carotid artery- normal, no bruits or abnormal pulsations. Jugular vein- no pulsations. Palpation/Percussion- Normal PMI, no palpable thrill Auscultation- Regular rate and rhythm. No murmur noted in sitting, supine positions. Extremities- no digital clubbing, cyanosis, edema, increased warmth. ABDOMEN: Inspection- normal and no visible pulsations. Normal contour. Auscultation- Bowel sounds normal, no abdominal bruits. Palpation/Percussion- soft, non-tender, no rebound tenderness, no rigidity (guarding), no jar tenderness, no masses. Liver-no hepatomegaly, Spleen no splenomegaly, Hernias - none. Rectal not examined. Peripheral Vascular: Lower extremity- Normal temperature with pink nailbeds and no ulcerations. DP pulses 2+ bilaterally. Pedal hair intact. Normal capillary refill. Edema- No edema. Varicose veins bilateral LE. Musculoskeletal: Generalized-No generalized swelling or edema of extremities, no digital clubbing or cyanosis, neurovascularly intact all four extremities. Neurological: General- Moves all 4 extremities symmetrically. Symmetrical face and body posture. Cranial nerves- individually evaluated II-XII and intact. PERRLA, Normal EOMI, visual/special senses appear intact, Face is symmetrical and normal sensation/movement, normal tongue, normal strength/posture of neck musculature. Neuropsych: Oriented- Person, place, time. (AAOx3), Mood/affect- Flat. Speech- Normal speech, normal rate, normal tone, normal use of language, volume and coherence. Judgment/insight- Appropriate. Lymphatic: Head/Neck- normal size and non tender to palpation. Axillary- normal size and non tender to palpation. Plan: Erysipelas/Cellulitis: Right breast. - Complete augmentin total of 7 days. - D/C from hospital on day 2/7 of augmentin. Take dose tonight and then twice daily until gone. - Complete clindamycin total of 7 days - D/C from hospital on day 3/7 of clindamycin. - Dosing is 4x daily. - 2 doses this afternoon then 4x daily until gone - If diarrhea develops with More than 3 very loose stools in a 24 hour period of time, you need to follow-up with Primary provider Jessica Carreon or go to ER to evaluate for c. diff. - Vaginal yeast infection can follow antibiotic use - Diarrhea can follow antibiotic use that is not c.diff as well. - Ibuprofen 200mg OTC 2-3 tablets q 6 hours - Consider outpatient Diagnostic mammogram of the right. US showed cellulitis. - If swelling in the breast worsens, if pain worsens, if redness worsens, please return to the ER. Leukocytosis (Elevated White blood cell count): RESOLVED During hospital stay - Consider CBC (cell blood count) in 1 week. Low Potassium: Resolved during hospital stay. - Discharged on potassium 2x daily for 1 week. - Consider CMP (metabolic panel) in 1 week to re-evaluate the potassium Normocytic anemia: RESOLVED During hospital stay. - Consider CBC in 1 week Psychiatric medications: - Resume home psych meds Low Blood pressure: - Resume normal diet. - Monitor. Activity: Ad adri. Off work x 1 week Diet: Normal Discharge 02/23/19 >30 minutes spent in discharge today.
== END 2019-02-23 13:50 | disposition home or self-care (01) ==
LOC: MEDSURG B 12:51 → ED 12:51 → MEDSURG B 15:25
PROVIDERS: ADMIT Family Medicine; ATTEND Family Medicine
DX: N61.0 Mastitis without abscess; R53.1 Weakness; R63.0 Anorexia; F20.9 Schizophrenia, unspecified; D64.9 Anemia, unspecified; I95.9 Hypotension, unspecified; R53.83 Other fatigue; L03.90 Cellulitis, unspecified; E87.6 Hypokalemia